=== PATIENT | female | born 1975 | race Asian ===

== ENCOUNTER 2025-02-06 19:22 | Emergency (ER) | payer MEDICAID, OTHER ==
[~2025-02-06] VITALS: Ht 165.1 cm; Wt 72.7 kg
[~2025-02-06 19:22] MED LIST: ALBU17AE16 IH; BECL8.7A5 IH; CARB-92 PO
[2025-02-06 19:40] VITALS: TEMP 98.2
[2025-02-06 20:35] LABS: BASOPHILS % (AUTO) 0.8 % (0.0-2.0); EOSINOPHILS % (AUTO) 2.6 % (1.0-6.0); HEMATOCRIT 34.3 % (36-46); LYMPHOCYTES # (AUTO) 1.8 K/uL (1.0-4.8); LYMPHOCYTES % (AUTO) 22.4 % (22.0-44.0); MEAN CORPUSCULAR HEMOGLOBIN 27.1 pg (26.0-34.0); MEAN CORPUSCULAR HGB CONC 32.2 G/dL (31.0-37.0); MEAN CORPUSCULAR VOLUME 84 fL (80-100); MONOCYTES # (AUTO) 0.5 K/uL (0.1-1.0); MONOCYTES % (AUTO) 6.1 % (2.0-9.0); NEUTROPHILS # (AUTO) 5.5 K/uL (1.8-7.7); NEUTROPHILS % (AUTO) 68.1 % (40.0-70.0); PLATELET COUNT (AUTO) 336 K/uL (150-450); RED BLOOD CELL COUNT(AUTO) 4.07 MIL/uL (4.00-5.20); RED CELL DISTRIBUTION WIDTH 16.2 % (11.5-14.5); WHITE BLOOD COUNT (AUTO) 8.2 K/uL (4.5-11.0)
[2025-02-06 20:44] LABS: ANION GAP 10 mmol/L (8-16); CALCIUM, TOTAL 8.7 mg/dL (8.8-10.5); CARBON DIOXIDE 28 mmol/L (22-29); CHLORIDE 104 mmol/L (98-107); CREATININE 0.58 mg/dL (0.60-1.30); GLOMERULAR FILTR. RATE CALC > 60 mL/min (>60); GLUCOSE,RANDOM 95 mg/dL (70-110); SODIUM SERUM 142 mmol/L (136-145); UREA NITROGEN, BLOOD 7 mg/dL (7-18)
[2025-02-06 20:52] LABS: ALANINE AMINOTRANSFERASE 17 U/L (12-78); ALKALINE PHOSPHATASE 116 U/L (46-116); ASPARTATE AMINOTRANSFERASE 13 U/L (15-37); BILIRUBIN,TOTAL 0.1 mg/dL (0.1-1.0); TOTAL PROTEIN, SERUM 7.9 g/dL (6.4-8.2)
[2025-02-06 20:53] LABS: BILIRUBIN,DIRECT < 0.05 mg/dL (0.00-0.20)
[2025-02-06 22:54] VITALS: BP 134/84; PULSE 73; RESP 16; O2SAT 97
[2025-02-06 23:43] LABS: CREATINE KINASE, TOTAL ONLY 51 U/L (26-192); TROPONIN I-HIGH SENSITIVITY 4 ng/L (<51)
[2025-02-07 00:03] LABS: B-TYPE NATRIURETIC PEPTIDE 9 pg/mL (0-100)
[2025-02-07 00:06] LABS: APPEARANCE,URINE HAZY (CLEAR); BILIRUBIN,URINE NEGATIVE (NEGATIVE); COLOR,URINE YELLOW (YELLOW); GLUCOSE, URINE (UA) NEGATIVE (NEGATIVE); KETONES,URINE NEGATIVE (NEGATIVE); LEUKOCYTE ESTERASE ,URINE MODERATE (NEGATIVE); NITRATE,URINE NEGATIVE (NEGATIVE); OCCULT BLOOD,URINE NEGATIVE (NEGATIVE); PROTEIN,URINE TRACE mg/dL (NEGATIVE); SPECIFIC GRAVITIY, URINE 1.022 (1.003-1.030); UROBILINOGEN,URINE <=1.0 mg/dL (<=1.0)
[2025-02-07] MEDS: KETOROLAC TROMETHAMINE 30 MG/ML VIAL IM ONE (00:32)
[2025-02-07] MEDS: PredniSONE 10 MG TABLET PO ONE (00:32)
[2025-02-07] MEDS ORDERED: PRED5TAB2 PO (00:32)
[2025-02-07] MEDS ORDERED: CEPH-558 PO (00:32)
[2025-02-07 00:34] LABS: BACTERIA,URINE None Seen /HPF (None Seen); RBC,URINE None Seen /HPF (0-2); SQUAMOUS EPITHELIAL CELL,UR Moderate /LPF (None Seen)
[2025-02-07] MEDS: CEPHALEXIN MONOHYDRATE 500 MG CAPSULE PO ONE (00:40)
== END 2025-02-07 01:05 | disposition home or self-care (01) ==
LOC: EMS 19:22
DX: M35.3 Polymyalgia rheumatica (principal); G50.0 Trigeminal neuralgia; N39.0 Urinary tract infection, site not specified; J45.909 Unspecified asthma, uncomplicated; M06.9 Rheumatoid arthritis, unspecified; Z79.51 Long term (current) use of inhaled steroids
CPT/HCPCS: 99285; 71045; 80048; 80076; 81001; 82550; 83880; 84484; 85025; 36415; 93005; 96372; J1885; J7512; Z7610